=== PATIENT | female | born 1995 | race Hispanic/Latino ===

== ENCOUNTER 2021-09-24 04:14 | Emergency (ER) | payer MEDICAID, OTHER, SELFPAY ==
[~2021-09-24] VITALS: Ht 149.9 cm; Wt 78.0 kg
[2021-09-24 04:52] LABS: BASOPHILS % (AUTO) 0.2 % (0.0-5.0); HEMATOCRIT 39.2 % (36-48); LYMPHOCYTES % (AUTO) 29.4 % (21.0-51.0); MEAN CORPUSCULAR HEMOGLOBIN 23.1 pg (27.0-33.0); MEAN CORPUSCULAR HGB CONC 32.4 g/dL (32.0-36.0); MEAN CORPUSCULAR VOLUME 71.4 fL (79-99); MONOCYTES % (AUTO) 5.2 % (3.0-13.0); NEUTROPHILS % (AUTO) 64.8 % (40.0-77.0); PLATELET COUNT (AUTO) 229 K/uL (130-400); RED BLOOD CELL COUNT(AUTO) 5.49 MIL/uL (4.00-5.50); RED CELL DISTRIBUTION WIDTH 14.4 % (11.0-15.5); WHITE BLOOD COUNT (AUTO) 5.2 K/uL (4.8-10.8)
[2021-09-24] MEDS ORDERED: GUAIFENESIN-CODEINE 5 ML SYRUP PO ONE (05:00)
[2021-09-24] MEDS ORDERED: 0.9%NACL 1000ML 1,000 ML IV ONE (05:00)
[2021-09-24] MEDS ORDERED: ACETAMINOPHEN 500 MG TABLET PO ONE (05:00)
[2021-09-24] MEDS ORDERED: KETOROLAC 30MG VIAL (30MG/ML) IV ONE (05:00)
[2021-09-24 05:05] LABS: CREATININE 0.7 mg/dL (0.5-1.5); POTASSIUM 3.3 mmol/L (3.5-5.1)
[2021-09-24 05:14] LABS: BILIRUBIN,TOTAL 0.5 mg/dL (0.2-1.0); TOTAL PROTEIN, SERUM 8.8 g/dL (6.0-8.3)
[2021-09-24 05:49] VITALS: BP 132/82
[2021-09-24] MEDS ORDERED: AZITHROMYCIN 250 MG TABLET PO ONE ×3 (05:52→06:00)
[2021-09-24] MEDS ORDERED: D-ME118S47 PO (05:53)
[2021-09-24] MEDS ORDERED: IBUP-2070 PO (05:53)
[2021-09-24] MEDS ORDERED: BUDE180H IH (05:53)
[2021-09-24] MEDS ORDERED: AZIT1PAC PO (05:53)
[2021-09-24] MEDS ORDERED: BUDESONIDE 0.5 MG/2 ML INH IH SCH (06:00)
[2021-09-24] MEDS ORDERED: BUDESONIDE 0.5 MG/2 ML INH IH ONE (06:17)
== END 2021-09-24 06:02 | disposition home or self-care (01) ==
LOC: EDH 04:14
DX: U07.1 COVID-19 (principal); Z79.1 Long term (current) use of non-steroidal anti-inflammatories (NSAID); Z79.51 Long term (current) use of inhaled steroids
CPT/HCPCS: 36415; 71045; 80053; 84702; 85025; 87635; 87804 ×2; 96361; 96374; 99284; C9803; J1885; J7030